=== PATIENT | male | born 1980 | race Caucasian/White ===

== ENCOUNTER 2016-06-14 01:27 | Emergency (ER) | payer MEDICAID ==
[2014-01-06 14:10] VITALS: BMI 27.4
[~2016-06-14 01:27] MED LIST: BACTRIM DS TABL1 TAB PO; HYDROCODONE-APA1 TAB PO; NAPROSYN500 MG PO; NUPRIN200 MG PO; ULTRAM50 MG PO
== END 2016-06-14 03:30 | disposition home or self-care (01) ==
LOC: D.ER 01:27
DX: L02.413 Cutaneous abscess of right upper limb (principal); M51.36 Other intervertebral disc degeneration, lumbar region

== ENCOUNTER 2016-06-22 23:14 | Inpatient (IN) | payer MEDICAID ==
[~2016-06-22] VITALS: Ht 190.5 cm; Wt 117.9 kg
[2016-06-23 02:18] LABS: BASOPHILS 0.2 % (0.0-2.0); EOSINOPHILS 2.5 % (0-7); HEMATOCRIT 43.1 % (42.0-54.0); HEMOGLOBIN 14.9 g/dL (13.5-17.5); IMMATURE GRANULOCYTES 0.2 % (0-5); LYMPHOCYTES 26.9 % (15-50); MCH 31.2 pg (26.0-34.0); MCHC 34.6 g/dL (31.0-37.0); MCV 90.4 fL (80.0-100.0); MEAN PLATELET VOLUME 10.6 fL (7.4-10.4); MONOCYTES 10.2 % (2-11); RBC 4.77 10x6/uL (4.20-6.10); RDW 14.8 % (11.5-14.5); WBC 8.4 10x3/uL (4.8-10.8)
[2016-06-23 02:19] LABS: PLATELET COUNT 159 10x3/uL (130-400)
[2016-06-23 02:34] LABS: ALBUMIN 3.8 g/dL (3.4-5.0); ALKALINE PHOSPHATASE 72 U/L (46-116); ALT (SGPT) 40 U/L (10-68); CALC OSMOLALITY 268 mosm/kg (275-300); CALCIUM 8.9 mg/dL (8.5-10.1); CARBON DIOXIDE 25.7 mmol/L (21.0-32.0); CHLORIDE - SERUM 99 mmol/L (98-107); CREATININE - SERUM 0.8 mg/dL (0.6-1.3); GLUCOSE 105 mg/dL (74-106); POTASSIUM - SERUM 3.8 mmol/L (3.5-5.1); PROTEIN - SERUM 7.5 g/dL (6.4-8.2); SODIUM 134 mmol/L (136-145); UREA NITROGEN 14 mg/dL (7-18); eGFR NON AFRICAN AMERICAN > 90 mL/min (90-120)
[2016-06-23 02:37] LABS: AMYLASE - SERUM 27 U/L (25-115); LIPASE 76 U/L (73-393); TROPONIN-I < 0.017 ng/mL (0.000-0.060)
--- NOTE | 2016-06-23 05:00 | NUR ---
PT. ARRIVED TO UNIT VIA W/C TO ROOM AND ADMISSION ASSESSMENT COMPLETED. PT. REQUESTED JELLO TO EAT SINCE HE HASN'T EATEN IN 2 DAYS HE SAID. INSTRUCTED PT. THAT LONG HE CAN SEE THRU IT HE CAN HAVE IT HIS DIET ORDER IS FOR CLEAR LIQUIDS FOR NOW. CALL LIGHT WITHIN REACH. IV TO PUMP AT 100CC/HR.
[2016-06-23 05:08] VITALS: BP 127/85; BMI 32.5
[2016-06-23] MEDS ORDERED: KLONOPIN1 MG PO (06:22)
[2016-06-23] MEDS ORDERED: TEMAZEPAM30 MG PO (06:24)
[2016-06-23] MEDS ORDERED: CELEXA20 MG PO (06:26)
[2016-06-23 08:00] VITALS: BP 115/65
--- NOTE | 2016-06-23 10:13 | NUR ---
AWAKERN FOR MEDS CO PAIN AT 6. WILL CALL FOR PAIN MED.
--- NOTE | 2016-06-23 10:13 | NUR ---
RATIONALE FOR SCD'S EXPLAINED. REFUSED SCD'S
[2016-06-23 12:08] VITALS: BP 107/61
[2016-06-23 12:09] VITALS: Ht 190.5 cm; Wt 117.9 kg
[2016-06-23 16:00] VITALS: BP 107/67
--- NOTE | 2016-06-23 18:15 | NUR ---
THROUGHOUT THE SHIFT, PATIENT HAS CO ABDOMEN PAIN. HAS BEEN MEDICATED ACCORDINGLY. KAMARI CLEAR LIQUIDS DIET.
--- NOTE | 2016-06-23 19:20 | NUR ---
Received patient sitting up in bed, female friend at bedside, PIV in right AC infusing NS @100ml/hr but is very positional. Patient is attempting to not bend arm so as not to set off alarm on IV pump. Is alert and oriented X 4, on room air, respirations easy and regular, no signs of respiratory distress.
--- NOTE | 2016-06-23 20:07 | NUR ---
Given Dilaudid 1mg per IV for complaints of abdominal pain, will monitor for effectiveness.
--- NOTE | 2016-06-23 20:39 | NUR ---
Started on Dilaudid PET SUPPLIES SALESPERSON pump (12mg/30ml syringe TBI/to be infused) by Aleksandra ECHEVARRIA and Viktor ECHEVARRIA. PET SUPPLIES SALESPERSON set at Dilaudid dose 0.5mg [id number].
--- NOTE | 2016-06-23 20:56 | NUR ---
Started on 4000ml Golytely solution for procedure tomorrow. Is aware he will be NPO after midnight. Is to have colonoscopy tomorrow. Consents signed for procedure, anesthesia and blood transfusions.
[2016-06-23 21:40] VITALS: BP 126/76
--- NOTE | 2016-06-23 22:15 | NUR ---
Continues to work on drinking his Golytely solution.
--- NOTE | 2016-06-23 22:50 | NUR ---
Has just now completed drinking the 4000ml Golytely solution. Resting quietly.
--- NOTE | 2016-06-23 23:53 | NUR ---
Given Restoril 30mg po PRN on patient's request for insomnia.
--- NOTE | 2016-06-24 | NUR ---
Patient reminded he is NPO now. Verbally replied he understood and will comply, using Dilaudid JOB SUPERINTENDENT pump frequently.
[2016-06-24 02:00] VITALS: BP 121/78
[2016-06-24 03:50] LABS: BASOPHILS 0.6 % (0.0-2.0); EOSINOPHILS 5.1 % (0-7); HEMATOCRIT 39.8 % (42.0-54.0); HEMOGLOBIN 13.4 g/dL (13.5-17.5); IMMATURE GRANULOCYTES 0.4 % (0-5); LYMPHOCYTES 44.1 % (15-50); MCH 30.7 pg (26.0-34.0); MCHC 33.7 g/dL (31.0-37.0); MCV 91.3 fL (80.0-100.0); MEAN PLATELET VOLUME 10.5 fL (7.4-10.4); MONOCYTES 12.3 % (2-11); NEUTROPHILS 37.5 % (40-80); PLATELET COUNT 160 10x3/uL (130-400); RBC 4.36 10x6/uL (4.20-6.10); RDW 14.4 % (11.5-14.5)
[2016-06-24 03:53] LABS: WBC 5.3 10x3/uL (4.8-10.8)
[2016-06-24 03:57] LABS: INR 1.08 (0.85-1.17); PROTIME 13.9 SECONDS (11.6-15.0)
[2016-06-24 03:58] LABS: APTT 33.6 SECONDS (22.8-39.4)
[2016-06-24 04:05] LABS: CALC OSMOLALITY 282 mosm/kg (275-300); CALCIUM 7.5 mg/dL (8.5-10.1); CARBON DIOXIDE 30.1 mmol/L (21.0-32.0); CHLORIDE - SERUM 107 mmol/L (98-107); CREATININE - SERUM 0.8 mg/dL (0.6-1.3); GLUCOSE 95 mg/dL (74-106); POTASSIUM - SERUM 3.9 mmol/L (3.5-5.1); SODIUM 143 mmol/L (136-145); eGFR NON AFRICAN AMERICAN > 90 mL/min (90-120)
[2016-06-24 04:07] LABS: UREA NITROGEN 7 mg/dL (7-18)
--- NOTE | 2016-06-24 04:47 | NUR ---
Has been sleeping on and off, call billingsley on, patient reports he has used all 30mls of his Dilaudid SP[employer] and same needs to be refilled.
[2016-06-24 04:53] LABS: ERYTHROCYTE SEDIMENTATION RATE 9 mm/hr (0-15)
[2016-06-24 05:09] LABS: UDS - AMPHET NEGATIVE QUAL (NEGATIVE); UDS - BARB NEGATIVE QUAL (NEGATIVE); UDS - BENZO POSITIVE QUAL (NEGATIVE); UDS - COCAINE NEGATIVE QUAL (NEGATIVE); UDS - METH NEGATIVE QUAL (NEGATIVE); UDS - OPIATE POSITIVE QUAL (NEGATIVE); UDS - PCP NEGATIVE QUAL (NEGATIVE); UDS - THC NEGATIVE QUAL (NEGATIVE)
--- NOTE | 2016-06-24 06:26 | NUR ---
New Dilaudid RECONDITIONING ASSOCIATE syringe hung. Patient remains NPO, current pain level 4/10.
--- NOTE | 2016-06-24 07:06 | HP ---
PATIENT: OVI NAVA MEDICAL RECORD: [id number] ACCOUNT: [id number] LOCATION:[address] : [birth year] ADMISSION DATE: 06/23/16 HISTORY AND PHYSICAL EXAMINATION DATE OF ADMISSION: 06/23/2016 CHIEF COMPLAINT: Rectal bleeding. HISTORY OF PRESENT ILLNESS: The patient is a 35-year-old male, who states that on Thursday morning early approximately 3:00 a.m., he had abdominal cramping and went to the restroom and had bright red blood. The bright red blood continued. The abdominal cramping continued. He presented to the Emergency Room. It was felt that the patient ____ admission. PAST MEDICAL HISTORY: Significant that he has had a history of having low back pain. He has had a history of anxiety as well as asthma and depression. FAMILY HISTORY: Apparently is unremarkable. MEDICATIONS: The patient states he takes amitriptyline 100 mg p.o. q.h.s., also he is on Wellbutrin 300 mg once a day, Celexa 20 mg once a day, clonazepam 1 mg p.o. q.h.s., hydrocodone 5/325 one every 4 hours p.r.n. severe pain. Also, was on Robaxin 750 q.6 hours p.r.n. muscle spasm, ProAir 2 puffs q.4 hours p.r.n. shortness of breath. ALLERGIES: No known drug allergies. HABITS: The patient is a 1 pack per day smoker, also occasional alcoholic ingestion on social basis. SOCIAL HISTORY: The patient was born in [place], but has lived in [place], recently moved to [facility], is currently seeking disability. REVIEW OF SYSTEMS: GENERAL: He denies any headaches, seizures, or syncope. Denies change in visual or auditory acuity. PULMONARY: He denies any shortness of breath, cough, congestion, history of TB, asthma or bronchitis. CARDIOVASCULAR: No chest pain, palpitations, PND or orthopnea. GASTROINTESTINAL: No chronic nausea or vomiting. He has had a hematochezia. GENITOURINARY: No urgency, frequency, or dysuria. PHYSICAL EXAMINATION: VITAL SIGNS: The patient's pulse 84, respirations 20, his blood pressure 127/85. HEENT: Unremarkable. NECK: Supple. There is no adenopathy. HEART: Has regular rhythm. No murmurs, gallops or rubs. LUNGS: Clear. ABDOMEN: Soft, bowel sounds positive. No organomegaly. GENITAL: Unremarkable. The patient has left lower quadrant tenderness. No rebound, no guarding. He did have bright red blood per rectum. LABORATORY DATA: He had a white count of 8.4, hemoglobin 14.9, hematocrit is HISTORY AND PHYSICAL [id number] BRANDY,OVI C 43, and platelets were 159. Sodium 134, potassium 3.8, chloride is 99, CO2 is 25, BUN is 14, creatinine is 0.8. DIAGNOSTIC DATA: The patient had a CT scan of the abdomen, which was not present at the present time, but apparently according to Dr. Wheeler, the patient does have inflammatory changes in the lower sigmoid colon, rectal area. ASSESSMENT: Lower gastrointestinal bleed, possible colitis. PLAN: The patient is admitted, placed on Levaquin as well as Flagyl. GI consultation will be obtained. TRANSINT:[id number] Voice Confirmation ID: [id number] DOCUMENT ID: [id number] WASHINGTON CARPENTER MD at 0706 CC: [id number] DICTATION DATE: 06/23/16 07 PRINT LINE TAILER: 06/23/16 1045 [place] [address]
--- NOTE | 2016-06-24 07:15 | NUR ---
RESTING QUIETLY NAD NOTED
--- NOTE | 2016-06-24 07:49 | NUR ---
Patient has used 10mls of Dilaudid COMMISSARY PRODUCTION SUPERVISOR since 625 when new syringe was hung. TBI (to be infused) is 20.7mls.
[2016-06-24 07:52] VITALS: BP 133/69
[2016-06-24 11:42] VITALS: BP 121/90
[2016-06-24 15:51] VITALS: BP 108/71
--- NOTE | 2016-06-24 20:09 | NUR ---
PT DILAUDID SYRINGE CHANGED. PT DENIES FURTHER NEEDS.
--- NOTE | 2016-06-24 21:45 | NUR ---
CORTENEMA ORDERED NOT AVAILABLE IN HOSPITAL. NOTIFIED BY PHARMACY THAT THEY SHOULD BE GETTING SOME TOMORROW. DR MONROE NOTIFIED. ANUCORT REGLA ORDERED FOR TONIGHT.
--- NOTE | 2016-06-24 23:15 | NUR ---
PT REQ AND REC'D PRN RESTORIL AT THIS TIME. PT ALSO ADMINISTERED HIS OWN SUPPOSITORY AT THIS TIME. BED LOW. CL IN REACH.
[2016-06-25] VITALS: BP 116/70
--- NOTE | 2016-06-25 02:15 | NUR ---
PT RESTING, EYES CLOSED. BED LOW. CL IN REACH.
[2016-06-25 04:00] VITALS: BP 120/81
--- NOTE | 2016-06-25 04:32 | NUR ---
PT DILAUDID SYRINGE CHANGED. PT DENIES FURTHER NEEDS.
[2016-06-25] MEDS ORDERED: FLAGYL500 MG PO (07:20)
[2016-06-25] MEDS ORDERED: AZULFIDINE500 MG PO (07:20)
[2016-06-25] MEDS ORDERED: CORTENEMA100 MG/60 RC (07:22)
--- NOTE | 2016-06-25 08:00 | NUR ---
PATIENT IS ASLEEP, BUT HE AWAKENS EASILY.
[2016-06-25 08:21] VITALS: BP 110/66
--- NOTE | 2016-06-25 10:00 | NUR ---
GEETA HAS BEEN D/C'D AND HE HAS NO MEDS FOR PAIN ORDERED. DID SPEAK TO PERSONNEL SECURITY ASSISTANT AND BAND SALVAGER. THEY STATE ONE WILL NOT PRESCRIBE PAIN MEDS IF HE IS GETTING MEDS FROM ANOTHER
--- NOTE | 2016-06-25 10:50 | NUR ---
PHARMACY NOT ABLE TO GET HYDROCORT ENEMA, CALLED DR. CHAUDHARY AND HE SAID TO GIVE ANUSOL HC. SUPPOSITORY INSERTED BY PATIENT NOW. D/C'D IV SITE, CATH INTACT.
--- NOTE | 2016-06-25 11:04 | NUR ---
PATIENT SIGNED D/C PAPERWORK.
--- NOTE | 2016-06-25 11:49 | NUR ---
Patient Name: OVI NAVA Admission Status: ER Accout number: [id number] Admission Date: 06-23-2016 : 1980 Admission Diagnosis: Attending: GUSTAVO Current LOS: 2 Anticipated DC Date: 06-25-2016 Planned Disposition: Home Primary Insurance: [employer] [place] PRIVATE OPTIONS DI[employer]OND Discharge Planning Comments: * Is the patient Alert and Oriented? Yes 0 * How many steps to enter\exit or inside your home? 3 0 * PCP DR. NICHOLS 0 * Pharmacy [facility] 0 * Preadmission Environment Home with Family 0 * ADLs Independent 0 * Equipment None 0 * Other Equipment NO MEDICAL EQUIPMENT PROVIDER PREFERENCE 0 * List name and contact numbers for known caregivers / representatives who currently or will assist patient after discharge: TONY NAVA, SPOUSE, 0 * Community resources currently utilized None 0 * Please name any agencies selected above. NONE 0 * Additional services required to return to the preadmission environment? No 0 * Can the patient safely return to the preadmission environment? Yes 0 * Has this patient been hospitalized within the prior 30 days at any hospital? Yes 0 CM MET WITH PT IN ROOM TO DISCUSS DISCHARGE PLANNING AND NEEDS. PT REPORTS LIVING AT HOME INDEPENDENTLY WITH HIS SPOUSE. PT HAS NO MEDICAL EQUIPMENT AND NO OUTSIDE SERVICES ASSISTING IN THE HOME. CM DISCUSSED AVAILABILITY OF HOME HEALTH, REHAB SERVICES AND MEDICAL EQUIPMENT. PT DENIES DISCHARGE NEEDS, REPORTS HIS SPOUSE WILL PICK HIM UP FOR DISCHARGE HOME. CM DISCUSSED AVAILABILITY OF INSURANCE KIL[employer]REMAN TO PT IF NEEDED AND HOW TO CONTACT THE CLOTHESPIN MACHINE OPERATOR. PT TO DISCHARGE HOME WITH SPOUSE, DENIES NEEDS. Substation Inspector: Vinicius Wood
[2016-06-25 12:36] VITALS: BP 108/61
--- NOTE | 2016-06-26 07:11 | DS ---
PATIENT:OVI NAVA :[birth year] MEDICAL RECORD: [id number] DISCHARGE SUMMARY ADMISSION DATE: 06/23/16 DISCHARGE DATE: 06/25/16 DATE OF ADMISSION: 06/23/2016 DATE OF DISCHARGE: 06/25/2016 CONDITION ON DISCHARGE: Improved. ADMITTING DIAGNOSIS: Abdominal pain with rectal bleeding. DISCHARGE DIAGNOSIS: Ulcerative proctosigmoiditis. HOSPITAL COURSE: This patient is a 35-year-old male patient of Dr. Valerio, presented to the Emergency Room complaining of abdominal cramping. He had developed bright red blood per rectum. He was admitted, placed on Flagyl as well as Cipro. He was seen in consultation by Dr. Jones. He had had a CT scan of the abdomen. CT revealed mucosal thickening in the rectosigmoid colon suggestive of inflammatory/infectious process. He was seen in consultation with Dr. Jones, who did a colonoscopy on the patient on the , which in her findings, she did reveal [id number] ulcerative proctosigmoiditis. Biopsies were taken. The colonoscopy was completed to the cecum. No other region of the colon had inflammatory changes, but very poor prep with solid and semi-solid stool throughout the colon. He was diagnosed with ulcerative proctosigmoiditis. He was placed on Flagyl 500 mg t.i.d. for 10 days, Cortenema b.i.d. per rectum for 7 days and then at bedtime for 7 days, sulfasalazine 500 mg 2 tablets q.i.d. for 3 months, then decreased it to 2 p.o. t.i.d. He would be on a full liquid diet. Avoid aspirin products. On the , the patient was afebrile, his vital signs were stable. He had had no further abdominal cramping or bleeding. He was therefore discharged. He was to follow up with Dr. Nichols in approximately 1 week as well as with Dr. Jones. He was discharged on sulfasalazine 1000 mg b.i.d., Flagyl 500 mg t.i.d. and Cortenema b.i.d. He would continue on his [place] 10/325 one every 4 hours p.r.n. severe pain, Klonopin 1 mg p.o. at bedtime, temazepam 30 mg p.o. at bedtime and Celexa 20 mg once a day. DIET: Soft diet. ACTIVITIES: Ad isma. TRANSINT:[id number] Voice Confirmation ID: [id number] DOCUMENT ID: [id number] WASHINGTON CARPENTER MD at 0711 CC: CHEIKH NICHOLS DO [id number] DICTATION DATE: 06/25/16727 CHUCKING MACHINE OPERATOR: 06/26/162 DIS IN 06/25/16 [place] [id number] [place] [id number]
--- NOTE | 2016-07-04 14:40 | OP ---
PATIENT NAME: OVI NAVA MEDICAL RECORD: [id number] :[birth year] LOCATION:D.M2 D.2111 ADMISSION DATE:06/23/16 SURGEON: ANAHI LUEVANO MD DATE OF OPERATION: 06/24/2016 PROCEDURE: Colonoscopy with biopsy. ATTENDING PHYSICIAN: Washington Carpenter MD INDICATIONS: Mr. Nava is a 35-year-old gentleman, who presented secondary to acute onset of rectal bleeding, left lower quadrant abdominal pain. CT scan of the abdomen and pelvis showed inflammatory changes in the rectosigmoid colon. He was empirically started on IV Flagyl and Levaquin. He presents for inpatient colonoscopy. PREMEDICATIONS: Total IV anesthesia (propofol 510 mg). INSTRUMENT: Olympus video colonoscope. PROCEDURE AND FINDINGS: After receiving informed consent, Mr. Nava was placed in left lateral decubitus position and sedated as per anesthesia. After achieving an adequate level of sedation, digital rectal exam was performed that showed no external hemorrhoidal tags, fissures or fistulas, normal sphincter tone. No palpable rectal masses. The colonoscope was introduced per rectally and advanced to the cecum without difficulty. The cecum, IC valve, and appendiceal orifice were identified. As the colonoscope was withdrawn, careful inspection was made of the barragan of the colon. There was a copious amount of thick liquid semi-formed stool and solid stool scattered throughout the colon (very poor prep). There were inflammatory changes of the colonic mucosa with a small shallow ulcers noted in the mid sigmoid colon down through to the rectum. Multiple biopsies were taken from the sigmoid colon and rectum. No other inflammatory changes were seen in the colon. Because of the quality of the prep, small polyps and even small masses may have been missed. Withdrawal time was 6 minutes. ASSESSMENT: Ulcerative proctosigmoiditis. RECOMMENDATIONS: 1. Sulfasalazine 500 mg 2 p.o. q.i.d. 2. Cortenemas 1 per rectum b.i.d. for 7 days and then 1 per rectum q.h.s. for 7 days. 3. Avoid nonsteroidal anti-inflammatory drugs. 4. Flagyl 500 mg 1 p.o. t.i.d. for 10 days. TRANSINT:[id number] Voice Confirmation ID: [id number] DOCUMENT ID: [id number] OPERATIVE REPORT [id number] OVI NAVA ANAHI LUEVANO MD at 1440 CC: WASHINGTON CARPENTER MD [id number] DICTATION DATE: 06/24/16 1640 PHARMACY INFORMATICS MANAGER: 06/25/16 0005 DIS IN 06/25/16 [facility] [address] [place] [address]
== END 2016-06-25 13:00 | disposition home or self-care (01) | DRG 387 ==
LOC: D.ER 23:14 → D.M2 06-23 03:52
PROVIDERS: Internal Medicine Gastroenterology; Surgery; ADMIT Family Medicine
PROC: 0DBN8ZX Excision of Sigmoid Colon, Via Natural or Artificial Opening Endoscopic, Diagnostic (ICD-10-PCS; principal; 2016-06-24 16:00)
DX: K51.30 Ulcerative (chronic) rectosigmoiditis without complications (principal); F41.9 Anxiety disorder, unspecified; F32.9 Major depressive disorder, single episode, unspecified; J45.909 Unspecified asthma, uncomplicated; Z72.0 Tobacco use

== ENCOUNTER → 2016-07-04 12:07 | Emergency (ER) | payer MEDICAID ==
[~2016-07-04 12:07] MED LIST changes: +AZULFIDINE500 MG PO; +CELEXA20 MG PO; +CORTENEMA100 MG/60 RC; +FLAGYL500 MG PO; +KLONOPIN1 MG PO; +TEMAZEPAM30 MG PO
== END | disposition left against medical advice (07) ==
LOC: D.ER 12:07
DX: Z02.9 Encounter for administrative examinations, unspecified (principal)

== ENCOUNTER 2016-07-04 19:42 | Emergency (ER) | payer MEDICAID ==
[2016-06-23 12:09] VITALS: BMI 32.4
[2016-07-04 20:35] LABS: BASOPHILS 0.9 % (0.0-2.0); EOSINOPHILS 4.1 % (0-7); HEMATOCRIT 46.3 % (42.0-54.0); HEMOGLOBIN 15.6 g/dL (13.5-17.5); IMMATURE GRANULOCYTES 1.3 % (0-5); LYMPHOCYTES 30.3 % (15-50); MCH 31.1 pg (26.0-34.0); MCHC 33.7 g/dL (31.0-37.0); MCV 92.4 fL (80.0-100.0); MEAN PLATELET VOLUME 9.8 fL (7.4-10.4); MONOCYTES 10.8 % (2-11); NEUTROPHILS 52.6 % (40-80); RBC 5.01 10x6/uL (4.20-6.10)
[2016-07-04 20:36] LABS: PLATELET COUNT 213 10x3/uL (130-400)
[2016-07-04 20:48] LABS: ALBUMIN 3.7 g/dL (3.4-5.0); ALKALINE PHOSPHATASE 65 U/L (46-116); ALT (SGPT) 41 U/L (10-68); BILIRUBIN - TOTAL 0.22 mg/dL (0.2-1.3); CALC OSMOLALITY 277 mosm/kg (275-300); CALCIUM 10.3 mg/dL (8.5-10.1); CARBON DIOXIDE 29.1 mmol/L (21.0-32.0); CHLORIDE - SERUM 103 mmol/L (98-107); GLUCOSE 76 mg/dL (74-106); POTASSIUM - SERUM 4.1 mmol/L (3.5-5.1); PROTEIN - SERUM 7.7 g/dL (6.4-8.2); SODIUM 140 mmol/L (136-145); UREA NITROGEN 12 mg/dL (7-18); eGFR NON AFRICAN AMERICAN 90 mL/min (90-120)
[2016-07-04 23:25] LABS: APPEARANCE CLEAR (CLEAR); BILIRUBIN NEGATIVE (NEGATIVE); COLOR YELLOW (YELLOW); GLUCOSE NEGATIVE (NEGATIVE); KETONE NEGATIVE (NEGATIVE); LEUKOCYTE ESTERASE NEGATIVE (NEGATIVE); NITRITE NEGATIVE (NEGATIVE); PROTEIN NEGATIVE (NEGATIVE); SPECIFIC GRAVITY 1.015 (1.005-1.020); UROBILINOGEN NORMAL (NORMAL)
== END 2016-07-05 01:37 | disposition home or self-care (01) ==
LOC: D.ER 19:42
PROVIDERS: Family Medicine
DX: R10.32 Left lower quadrant pain (principal); M51.36 Other intervertebral disc degeneration, lumbar region; F32.9 Major depressive disorder, single episode, unspecified

== ENCOUNTER 2016-07-18 18:23 | Emergency (ER) | payer MEDICAID ==
[2016-06-23 12:09] VITALS: BMI 32.4
[2016-07-18 20:07] LABS: BASOPHILS 0.5 % (0.0-2.0); EOSINOPHILS 0.7 % (0-7); HEMATOCRIT 44.2 % (42.0-54.0); HEMOGLOBIN 15.3 g/dL (13.5-17.5); IMMATURE GRANULOCYTES 1.7 % (0-5); LYMPHOCYTES 5.6 % (15-50); MCHC 34.6 g/dL (31.0-37.0); MCV 89.5 fL (80.0-100.0); MEAN PLATELET VOLUME 9.3 fL (7.4-10.4); MONOCYTES 4.2 % (2-11); NEUTROPHILS 87.3 % (40-80); RBC 4.94 10x6/uL (4.20-6.10); RDW 14.6 % (11.5-14.5); WBC 10.6 10x3/uL (4.8-10.8)
[2016-07-18 20:08] LABS: APPEARANCE CLEAR (CLEAR); BILIRUBIN NEGATIVE (NEGATIVE); COLOR YELLOW (YELLOW); GLUCOSE NEGATIVE (NEGATIVE); KETONE NEGATIVE (NEGATIVE); LEUKOCYTE ESTERASE NEGATIVE (NEGATIVE); NITRITE NEGATIVE (NEGATIVE); PROTEIN NEGATIVE (NEGATIVE); SPECIFIC GRAVITY 1.015 (1.005-1.020); UROBILINOGEN NORMAL (NORMAL)
[2016-07-18 20:08] LABS: PLATELET COUNT 165 10x3/uL (130-400)
[2016-07-18 20:13] LABS: UDS - AMPHET NEGATIVE QUAL (NEGATIVE); UDS - BARB NEGATIVE QUAL (NEGATIVE); UDS - BENZO POSITIVE QUAL (NEGATIVE); UDS - COCAINE NEGATIVE QUAL (NEGATIVE); UDS - METH NEGATIVE QUAL (NEGATIVE); UDS - OPIATE NEGATIVE QUAL (NEGATIVE); UDS - PCP NEGATIVE QUAL (NEGATIVE); UDS - THC NEGATIVE QUAL (NEGATIVE)
[2016-07-18 20:19] LABS: ALBUMIN 3.5 g/dL (3.4-5.0); ALKALINE PHOSPHATASE 93 U/L (46-116); ALT (SGPT) 53 U/L (10-68); BILIRUBIN - TOTAL 0.27 mg/dL (0.2-1.3); CALC OSMOLALITY 277 mosm/kg (275-300); CALCIUM 8.7 mg/dL (8.5-10.1); CARBON DIOXIDE 29.3 mmol/L (21.0-32.0); CHLORIDE - SERUM 100 mmol/L (98-107); GLUCOSE 111 mg/dL (74-106); POTASSIUM - SERUM 4.1 mmol/L (3.5-5.1); PROTEIN - SERUM 7.8 g/dL (6.4-8.2); SODIUM 138 mmol/L (136-145); UREA NITROGEN 16 mg/dL (7-18); eGFR NON AFRICAN AMERICAN 90 mL/min (90-120)
[2016-07-18 20:31] LABS: C-REACTIVE PROTEIN 2.2 mg/dL (0.0-0.9); CKMB 1.5 U/L (0.0-3.6)
== END 2016-07-18 21:20 | disposition home or self-care (01) ==
LOC: D.ER 18:23
PROVIDERS: Nurse Practitioner Family
DX: M25.552 Pain in left hip (principal); M25.551 Pain in right hip; K50.90 Crohn's disease, unspecified, without complications; M51.36 Other intervertebral disc degeneration, lumbar region; F32.9 Major depressive disorder, single episode, unspecified

== ENCOUNTER 2016-08-04 16:59 | Emergency (ER) | payer MEDICAID ==
[2016-06-23 12:09] VITALS: BMI 32.4
[2016-08-04 18:23] LABS: BASOPHILS 0.4 % (0-2); EOSINOPHILS 3.5 % (0-7); HEMATOCRIT 42.9 % (42.0-54.0); HEMOGLOBIN 14.9 g/dL (13.5-17.5); IMMATURE GRANULOCYTES 0.7 % (0-5); LYMPHOCYTES 41.5 % (15-50); MCH 31.9 pg (26.0-34.0); MCHC 34.7 g/dL (31.0-37.0); MCV 91.9 fL (80.0-100.0); MEAN PLATELET VOLUME 9.7 fL (7.4-10.4); MONOCYTES 13.7 % (2-11); NEUTROPHILS 40.2 % (40-80); RBC 4.67 10x6/uL (4.20-6.10); RDW 15.6 % (11.5-14.5); WBC 6.8 10x3/uL (4.8-10.8)
[2016-08-04 18:31] LABS: PLATELET COUNT 210 10x3/uL (130-400)
[2016-08-04 18:47] LABS: ALBUMIN 3.5 g/dL (3.4-5.0); ALKALINE PHOSPHATASE 60 U/L (46-116); ALT (SGPT) 36 U/L (10-68); BILIRUBIN - TOTAL 0.46 mg/dL (0.2-1.3); CALC OSMOLALITY 276 mosm/kg (275-300); CALCIUM 8.8 mg/dL (8.5-10.1); CARBON DIOXIDE 30.6 mmol/L (21.0-32.0); CHLORIDE - SERUM 103 mmol/L (98-107); CREATININE - SERUM 0.8 mg/dL (0.6-1.3); GLUCOSE 90 mg/dL (74-106); POTASSIUM - SERUM 3.7 mmol/L (3.5-5.1); PROTEIN - SERUM 7.1 g/dL (6.4-8.2); SODIUM 139 mmol/L (136-145); UREA NITROGEN 11 mg/dL (7-18); eGFR NON AFRICAN AMERICAN > 90 mL/min (90-120)
[2016-08-04 20:22] LABS: APPEARANCE CLEAR (CLEAR); BILIRUBIN NEGATIVE (NEGATIVE); COLOR YELLOW (YELLOW); GLUCOSE NEGATIVE (NEGATIVE); KETONE NEGATIVE (NEGATIVE); LEUKOCYTE ESTERASE NEGATIVE (NEGATIVE); NITRITE NEGATIVE (NEGATIVE); PROTEIN NEGATIVE (NEGATIVE); SPECIFIC GRAVITY 1.015 (1.005-1.020); UROBILINOGEN NORMAL (NORMAL)
== END 2016-08-04 22:10 | disposition home or self-care (01) ==
LOC: D.ER 16:59
PROVIDERS: Emergency Medicine
DX: K58.9 Irritable bowel syndrome, unspecified (principal); M51.36 Other intervertebral disc degeneration, lumbar region

== ENCOUNTER 2016-08-05 17:06 | Emergency (ER) | payer MEDICAID ==
[2016-06-23 12:09] VITALS: BMI 32.4
[2016-08-05 21:05] LABS: BASOPHILS 0.5 % (0-2); EOSINOPHILS 0.2 % (0-7); HEMATOCRIT 48.8 % (42.0-54.0); HEMOGLOBIN 16.4 g/dL (13.5-17.5); LYMPHOCYTES 23.3 % (15-50); MCH 31.4 pg (26.0-34.0); MCHC 33.6 g/dL (31.0-37.0); MCV 93.3 fL (80.0-100.0); MEAN PLATELET VOLUME 10.1 fL (7.4-10.4); MONOCYTES 1.5 % (2-11); NEUTROPHILS 73.5 % (40-80); RBC 5.23 10x6/uL (4.20-6.10); RDW 15.4 % (11.5-14.5); WBC 6.1 10x3/uL (4.8-10.8)
[2016-08-05 21:13] LABS: PLATELET COUNT 264 10x3/uL (130-400)
[2016-08-05 21:28] LABS: ALKALINE PHOSPHATASE 68 U/L (46-116); ALT (SGPT) 40 U/L (10-68); BILIRUBIN - TOTAL 0.21 mg/dL (0.2-1.3); CALCIUM 9.2 mg/dL (8.5-10.1); CHLORIDE - SERUM 107 mmol/L (98-107); CREATININE - SERUM 0.9 mg/dL (0.6-1.3); PROTEIN - SERUM 7.9 g/dL (6.4-8.2); SODIUM 144 mmol/L (136-145); UREA NITROGEN 10 mg/dL (7-18); eGFR NON AFRICAN AMERICAN > 90 mL/min (90-120)
[2016-08-05 21:35] LABS: CALC OSMOLALITY 288 mosm/kg (275-300); GLUCOSE 155 mg/dL (74-106); POTASSIUM - SERUM 4.8 mmol/L (3.5-5.1)
== END 2016-08-05 21:39 | disposition home or self-care (01) ==
LOC: D.ER 17:06
PROVIDERS: Emergency Medicine
DX: F41.9 Anxiety disorder, unspecified (principal); R45.5 Hostility; K50.90 Crohn's disease, unspecified, without complications

== ENCOUNTER 2017-06-02 15:04 | Emergency (ER) | payer MEDICAID ==
[2016-06-23 12:09] VITALS: BMI 32.4
== END 2017-06-02 16:37 | disposition home or self-care (01) ==
LOC: D.ER 15:04
DX: M79.672 Pain in left foot (principal)

== ENCOUNTER 2017-06-04 12:52 | Emergency (ER) | payer MEDICAID ==
[2016-06-23 12:09] VITALS: BMI 32.4
[2017-06-04 13:28] LABS: APPEARANCE CLEAR (CLEAR); BILIRUBIN NEGATIVE (NEGATIVE); COLOR YELLOW (YELLOW); GLUCOSE NEGATIVE (NEGATIVE); KETONE NEGATIVE (NEGATIVE); NITRITE NEGATIVE (NEGATIVE); PROTEIN NEGATIVE (NEGATIVE); UROBILINOGEN NORMAL (NORMAL)
[2017-06-04 13:32] LABS: BASOPHILS 0.2 % (0-2); EOSINOPHILS 3.3 % (0-7); HEMATOCRIT 40.7 % (42.0-54.0); HEMOGLOBIN 13.7 g/dL (13.5-17.5); IMMATURE GRANULOCYTES 0.2 % (0-5); MCH 30.9 pg (26.0-34.0); MCHC 33.7 g/dL (31.0-37.0); MCV 91.9 fL (80.0-100.0); MEAN PLATELET VOLUME 10.7 fL (7.4-10.4); MONOCYTES 19.3 % (2-11); PLATELET COUNT 143 10x3/uL (130-400); RBC 4.43 10x6/uL (4.20-6.10); WBC 5.2 10x3/uL (4.8-10.8)
[2017-06-04 13:51] LABS: ALBUMIN 3.7 g/dL (3.4-5.0); ALKALINE PHOSPHATASE 62 U/L (46-116); ALT (SGPT) 26 U/L (10-68); CALC OSMOLALITY 273 mosm/kg (275-300); CALCIUM 9.1 mg/dL (8.5-10.1); CARBON DIOXIDE 31.6 mmol/L (21.0-32.0); CHLORIDE - SERUM 99 mmol/L (98-107); CREATININE - SERUM 0.9 mg/dL (0.6-1.3); GLUCOSE 95 mg/dL (74-106); POTASSIUM - SERUM 4.7 mmol/L (3.5-5.1); PROTEIN - SERUM 7.2 g/dL (6.4-8.2); SODIUM 136 mmol/L (136-145); UREA NITROGEN 18 mg/dL (7-18); eGFR NON AFRICAN AMERICAN > 90 mL/min (90-120)
[2017-06-04 14:01] LABS: AMYLASE - SERUM 41 U/L (25-115); LIPASE 71 U/L (73-393)
== END 2017-06-04 15:15 | disposition home or self-care (01) ==
LOC: D.ER 12:52
PROVIDERS: Emergency Medicine
DX: K50.90 Crohn's disease, unspecified, without complications (principal)

== ENCOUNTER 2017-06-05 17:04 | Emergency (ER) | payer MEDICAID ==
[2016-06-23 12:09] VITALS: BMI 32.4
[2017-06-05 18:37] LABS: BASOPHILS 0.2 % (0-2); EOSINOPHILS 3.6 % (0-7); HEMATOCRIT 40.2 % (42.0-54.0); HEMOGLOBIN 13.6 g/dL (13.5-17.5); IMMATURE GRANULOCYTES 0.2 % (0-5); LYMPHOCYTES 31.9 % (15-50); MCH 31.1 pg (26.0-34.0); MCHC 33.8 g/dL (31.0-37.0); MEAN PLATELET VOLUME 10.1 fL (7.4-10.4); MONOCYTES 10.8 % (2-11); NEUTROPHILS 53.3 % (40-80); PLATELET COUNT 161 10x3/uL (130-400); RBC 4.37 10x6/uL (4.20-6.10); RDW 13.9 % (11.5-14.5); WBC 6.2 10x3/uL (4.8-10.8)
[2017-06-05 18:59] LABS: ALBUMIN 3.7 g/dL (3.4-5.0); ALKALINE PHOSPHATASE 100 U/L (46-116); BILIRUBIN - TOTAL 0.18 mg/dL (0.2-1.3); CALC OSMOLALITY 282 mosm/kg (275-300); CALCIUM 9.1 mg/dL (8.5-10.1); CARBON DIOXIDE 30.4 mmol/L (21.0-32.0); CHLORIDE - SERUM 103 mmol/L (98-107); CREATININE - SERUM 0.9 mg/dL (0.6-1.3); GLUCOSE 90 mg/dL (74-106); LIPASE 111 U/L (73-393); POTASSIUM - SERUM 4.1 mmol/L (3.5-5.1); PROTEIN - SERUM 7.5 g/dL (6.4-8.2); SODIUM 141 mmol/L (136-145); UREA NITROGEN 19 mg/dL (7-18); eGFR NON AFRICAN AMERICAN > 90 mL/min (90-120)
[2017-06-05 19:06] LABS: ALT (SGPT) 64 U/L (10-68); AMYLASE - SERUM 52 U/L (25-115)
[2017-06-05 19:50] LABS: INR 0.97 (0.85-1.17); PROTIME 12.4 SECONDS (11.6-15.0)
[2017-06-05 21:31] LABS: APPEARANCE CLEAR (CLEAR); BILIRUBIN NEGATIVE (NEGATIVE); COLOR DK YELLOW (YELLOW); GLUCOSE NEGATIVE (NEGATIVE); KETONE NEGATIVE (NEGATIVE); NITRITE NEGATIVE (NEGATIVE); PROTEIN TRACE mg/dL (NEGATIVE); UROBILINOGEN NORMAL (NORMAL)
== END 2017-06-06 00:16 | disposition home or self-care (01) ==
LOC: D.ER 17:04
PROVIDERS: Emergency Medicine; Nurse Practitioner Family
DX: K59.00 Constipation, unspecified (principal); K50.90 Crohn's disease, unspecified, without complications; F17.200 Nicotine dependence, unspecified, uncomplicated

== ENCOUNTER 2017-07-28 18:57 | Inpatient (IN) | payer MEDICAID ==
[~2017-07-28] VITALS: Ht 195.6 cm; Wt 120.2 kg
[2017-07-28 21:16] LABS: BASOPHILS 0.1 % (0-2); EOSINOPHILS 0.9 % (0-7); HEMATOCRIT 46.8 % (42.0-54.0); HEMOGLOBIN 16.6 g/dL (13.5-17.5); IMMATURE GRANULOCYTES 0.3 % (0-5); LYMPHOCYTES 24.8 % (15-50); MCH 31.8 pg (26.0-34.0); MCHC 35.5 g/dL (31.0-37.0); MCV 89.7 fL (80.0-100.0); MEAN PLATELET VOLUME 9.7 fL (7.4-10.4); MONOCYTES 11.3 % (2-11); NEUTROPHILS 62.6 % (40-80); RBC 5.22 10x6/uL (4.20-6.10); RDW 13.3 % (11.5-14.5); WBC 12.1 10x3/uL (4.8-10.8)
[2017-07-28 21:28] LABS: PLATELET COUNT 231 10x3/uL (130-400)
[2017-07-28 21:58] LABS: ALBUMIN 4.1 g/dL (3.4-5.0); ALKALINE PHOSPHATASE 66 U/L (46-116); ALT (SGPT) 82 U/L (10-68); BILIRUBIN - TOTAL 0.56 mg/dL (0.2-1.3); CALC OSMOLALITY 264 mosm/kg (275-300); CALCIUM 9.3 mg/dL (8.5-10.1); CARBON DIOXIDE 26.2 mmol/L (21.0-32.0); CHLORIDE - SERUM 96 mmol/L (98-107); CREATININE - SERUM 0.8 mg/dL (0.6-1.3); GLUCOSE 91 mg/dL (74-106); POTASSIUM - SERUM 3.7 mmol/L (3.5-5.1); SODIUM 133 mmol/L (136-145); UREA NITROGEN 11 mg/dL (7-18); eGFR NON AFRICAN AMERICAN > 90 mL/min (90-120)
[2017-07-28 23:53] LABS: APPEARANCE CLEAR (CLEAR); BILIRUBIN NEGATIVE (NEGATIVE); COLOR YELLOW (YELLOW); GLUCOSE NEGATIVE (NEGATIVE); KETONE NEGATIVE (NEGATIVE); NITRITE NEGATIVE (NEGATIVE); PROTEIN NEGATIVE (NEGATIVE); UROBILINOGEN NORMAL (NORMAL)
[2017-07-29 01:10] LABS: INR 1.01 (0.85-1.17); PROTIME 12.9 SECONDS (11.6-15.0)
[2017-07-29 02:09] LABS: ERYTHROCYTE SEDIMENTATION RATE 2 mm/hr (0-15)
[2017-07-29 05:02] LABS: BASOPHILS 0.1 % (0-2); EOSINOPHILS 0.5 % (0-7); HEMATOCRIT 45.4 % (42.0-54.0); HEMOGLOBIN 15.9 g/dL (13.5-17.5); IMMATURE GRANULOCYTES 0.3 % (0-5); LYMPHOCYTES 12.3 % (15-50); MCH 31.6 pg (26.0-34.0); MCV 90.3 fL (80.0-100.0); MEAN PLATELET VOLUME 10.3 fL (7.4-10.4); MONOCYTES 3.3 % (2-11); NEUTROPHILS 83.5 % (40-80); PLATELET COUNT 218 10x3/uL (130-400); RBC 5.03 10x6/uL (4.20-6.10); RDW 13.5 % (11.5-14.5)
[2017-07-29 05:05] LABS: WBC 8.7 10x3/uL (4.8-10.8)
[2017-07-29 05:17] LABS: ALBUMIN 3.8 g/dL (3.4-5.0); ALKALINE PHOSPHATASE 69 U/L (46-116); ALT (SGPT) 71 U/L (10-68); CALC OSMOLALITY 271 mosm/kg (275-300); CALCIUM 9.2 mg/dL (8.5-10.1); CARBON DIOXIDE 25.8 mmol/L (21.0-32.0); CHLORIDE - SERUM 102 mmol/L (98-107); GLUCOSE 109 mg/dL (74-106); POTASSIUM - SERUM 5.1 mmol/L (3.5-5.1); PROTEIN - SERUM 7.2 g/dL (6.4-8.2); SODIUM 136 mmol/L (136-145); UREA NITROGEN 10 mg/dL (7-18); eGFR NON AFRICAN AMERICAN 89 mL/min (90-120)
[2017-07-29 10:24] LABS: UDS - AMPHET POSITIVE QUAL (NEGATIVE); UDS - BARB NEGATIVE QUAL (NEGATIVE); UDS - BENZO POSITIVE QUAL (NEGATIVE); UDS - COCAINE NEGATIVE QUAL (NEGATIVE); UDS - OPIATE POSITIVE QUAL (NEGATIVE); UDS - PCP NEGATIVE QUAL (NEGATIVE); UDS - THC NEGATIVE QUAL (NEGATIVE)
[2017-07-29 14:38] LABS: BASOPHILS 0 % (0-2); EOSINOPHILS 0.2 % (0-7); HEMATOCRIT 45.8 % (42.0-54.0); HEMOGLOBIN 16.1 g/dL (13.5-17.5); IMMATURE GRANULOCYTES 0.3 % (0-5); LYMPHOCYTES 17.1 % (15-50); MCH 31.8 pg (26.0-34.0); MCHC 35.2 g/dL (31.0-37.0); MCV 90.5 fL (80.0-100.0); MONOCYTES 5.1 % (2-11); NEUTROPHILS 77.3 % (40-80); PLATELET COUNT 235 10x3/uL (130-400); RBC 5.06 10x6/uL (4.20-6.10); RDW 13.3 % (11.5-14.5); WBC 8.7 10x3/uL (4.8-10.8)
[2017-07-30] VITALS (7 sets, daily range): BP systolic 94–137; BP diastolic 42–74; Ht 195.6 cm; Wt 120.2 kg
[2017-07-30] MEDS ORDERED: CYMBALTA20 MG (04:54)
[2017-07-30] MEDS ORDERED: APRISO0.375 GM (04:55)
[2017-07-30 06:52] LABS: BASOPHILS 0 % (0-2); EOSINOPHILS 0.2 % (0-7); HEMATOCRIT 40.1 % (42.0-54.0); HEMOGLOBIN 13.9 g/dL (13.5-17.5); IMMATURE GRANULOCYTES 0.2 % (0-5); LYMPHOCYTES 8.2 % (15-50); MCH 31.4 pg (26.0-34.0); MCHC 34.7 g/dL (31.0-37.0); MCV 90.5 fL (80.0-100.0); MEAN PLATELET VOLUME 10.3 fL (7.4-10.4); NEUTROPHILS 87.4 % (40-80); PLATELET COUNT 203 10x3/uL (130-400); RBC 4.43 10x6/uL (4.20-6.10); RDW 13.5 % (11.5-14.5); WBC 9.5 10x3/uL (4.8-10.8)
[2017-07-30 07:06] LABS: ALBUMIN 3.1 g/dL (3.4-5.0); ALKALINE PHOSPHATASE 59 U/L (46-116); CALC OSMOLALITY 277 mosm/kg (275-300); CALCIUM 8.5 mg/dL (8.5-10.1); CARBON DIOXIDE 24.6 mmol/L (21.0-32.0); CHLORIDE - SERUM 106 mmol/L (98-107); CREATININE - SERUM 0.8 mg/dL (0.6-1.3); GLUCOSE 115 mg/dL (74-106); POTASSIUM - SERUM 4.5 mmol/L (3.5-5.1); PROTEIN - SERUM 6.1 g/dL (6.4-8.2); SODIUM 140 mmol/L (136-145); UREA NITROGEN 8 mg/dL (7-18); eGFR NON AFRICAN AMERICAN > 90 mL/min (90-120)
[2017-07-30 07:08] LABS: ALT (SGPT) 49 U/L (10-68)
[2017-07-31] VITALS: BP 114/77
[2017-07-31 05:49] LABS: CALC OSMOLALITY 281 mosm/kg (275-300); CALCIUM 8.3 mg/dL (8.5-10.1); CARBON DIOXIDE 24.5 mmol/L (21.0-32.0); CHLORIDE - SERUM 106 mmol/L (98-107); CREATININE - SERUM 0.9 mg/dL (0.6-1.3); GLUCOSE 120 mg/dL (74-106); POTASSIUM - SERUM 4.2 mmol/L (3.5-5.1); SODIUM 141 mmol/L (136-145); eGFR NON AFRICAN AMERICAN > 90 mL/min (90-120)
[2017-07-31 05:53] LABS: UREA NITROGEN 13 mg/dL (7-18)
[2017-07-31 06:13] LABS: BASOPHILS 0 % (0-2); EOSINOPHILS 0 % (0-7); HEMOGLOBIN 12.9 g/dL (13.5-17.5); IMMATURE GRANULOCYTES 0.3 % (0-5); LYMPHOCYTES 10.4 % (15-50); MCH 31.2 pg (26.0-34.0); MCHC 33.9 g/dL (31.0-37.0); MEAN PLATELET VOLUME 10.2 fL (7.4-10.4); MONOCYTES 4.1 % (2-11); NEUTROPHILS 85.2 % (40-80); PLATELET COUNT 168 10x3/uL (130-400); RBC 4.13 10x6/uL (4.20-6.10); RDW 13.7 % (11.5-14.5); WBC 7.8 10x3/uL (4.8-10.8)
[2017-07-31 07:56] VITALS: BP 120/69
[2017-07-31] MEDS ORDERED: APRISO0.375 GM PO (09:12)
[2017-07-31] MEDS ORDERED: CYMBALTA30 MG PO (09:13)
[2017-07-31 12:11] VITALS: BP 130/68
[2017-07-31 15:55] VITALS: BP 120/60
[2017-07-31 20:00] VITALS: BP 117/69
[2017-08-01] VITALS: BP 99/45
[2017-08-01 04:00] VITALS: BP 125/75
[2017-08-01 05:08] LABS: BASOPHILS 0 % (0-2); EOSINOPHILS 0 % (0-7); HEMATOCRIT 38.7 % (42.0-54.0); IMMATURE GRANULOCYTES 0.3 % (0-5); LYMPHOCYTES 14.7 % (15-50); MCH 31.1 pg (26.0-34.0); MCHC 33.6 g/dL (31.0-37.0); MCV 92.6 fL (80.0-100.0); MEAN PLATELET VOLUME 10.8 fL (7.4-10.4); MONOCYTES 6.3 % (2-11); NEUTROPHILS 78.7 % (40-80); PLATELET COUNT 166 10x3/uL (130-400); RBC 4.18 10x6/uL (4.20-6.10); RDW 13.8 % (11.5-14.5)
[2017-08-01 05:13] LABS: ALKALINE PHOSPHATASE 51 U/L (46-116); BILIRUBIN - TOTAL 0.16 mg/dL (0.2-1.3); CALCIUM 8.7 mg/dL (8.5-10.1); CARBON DIOXIDE 27.7 mmol/L (21.0-32.0); CHLORIDE - SERUM 105 mmol/L (98-107); CREATININE - SERUM 0.7 mg/dL (0.6-1.3); GLUCOSE 110 mg/dL (74-106); POTASSIUM - SERUM 3.9 mmol/L (3.5-5.1); PROTEIN - SERUM 6.2 g/dL (6.4-8.2); SODIUM 141 mmol/L (136-145); eGFR NON AFRICAN AMERICAN > 90 mL/min (90-120)
[2017-08-01 05:27] LABS: ALT (SGPT) 35 U/L (10-68); CALC OSMOLALITY 279 mosm/kg (275-300); UREA NITROGEN 8 mg/dL (7-18)
[2017-08-01 08:23] VITALS: BP 124/65
[2017-08-01 12:33] VITALS: BP 119/53
[2017-08-01 16:19] VITALS: BP 138/66
[2017-08-01 22:58] VITALS: BP 139/76
[2017-08-02 05:32] VITALS: BP 135/82
[2017-08-02 08:36] VITALS: BP 130/75
[2017-08-02 12:04] VITALS: BP 128/72
[2017-08-02 16:14] VITALS: BP 141/73
[2017-08-02 21:56] VITALS: BP 142/86
[2017-08-03 02:33] VITALS: BP 128/66
[2017-08-03 04:48] LABS: BASOPHILS 0 % (0-2); EOSINOPHILS 0 % (0-7); HEMOGLOBIN 14.4 g/dL (13.5-17.5); IMMATURE GRANULOCYTES 1.3 % (0-5); LYMPHOCYTES 10.9 % (15-50); MCH 31.6 pg (26.0-34.0); MCHC 34.3 g/dL (31.0-37.0); MCV 92.1 fL (80.0-100.0); MEAN PLATELET VOLUME 10.8 fL (7.4-10.4); MONOCYTES 4.9 % (2-11); NEUTROPHILS 82.9 % (40-80); PLATELET COUNT 183 10x3/uL (130-400); RBC 4.56 10x6/uL (4.20-6.10); RDW 13.6 % (11.5-14.5)
[2017-08-03 04:55] LABS: WBC 10.9 10x3/uL (4.8-10.8)
[2017-08-03 05:02] LABS: CALC OSMOLALITY 277 mosm/kg (275-300); CALCIUM 8.7 mg/dL (8.5-10.1); CARBON DIOXIDE 27.7 mmol/L (21.0-32.0); CHLORIDE - SERUM 101 mmol/L (98-107); CREATININE - SERUM 0.8 mg/dL (0.6-1.3); GLUCOSE 153 mg/dL (74-106); SODIUM 137 mmol/L (136-145); eGFR NON AFRICAN AMERICAN > 90 mL/min (90-120)
[2017-08-03 05:05] LABS: UREA NITROGEN 15 mg/dL (7-18)
[2017-08-03 09:41] VITALS: BP 126/73
[2017-08-03 13:12] VITALS: BP 112/54
[2017-08-03] MEDS ORDERED: PROTONIX40 MG PO (15:45)
[2017-08-03] MEDS ORDERED: MEDROL DOSE PACK4 MG PO (15:46)
== END 2017-08-03 17:52 | disposition home or self-care (01) | DRG 387 ==
LOC: D.ER 18:57 → D.EDHOLD 07-29 01:10 → D.MS 07-29 01:10
PROVIDERS: Family Medicine; Internal Medicine Gastroenterology; Nurse Practitioner Family
DX: K50.911 Crohn's disease, unspecified, with rectal bleeding (principal); K58.9 Irritable bowel syndrome, unspecified; F15.10 Other stimulant abuse, uncomplicated; K59.00 Constipation, unspecified

== ENCOUNTER 2017-10-01 20:51 | Emergency (ER) | payer MEDICAID ==
[~2017-10-01] VITALS: Ht 195.6 cm; Wt 122.7 kg
[~2017-10-01 20:51] MED LIST changes: +APRISO0.375 GM; +APRISO0.375 GM PO; +CYMBALTA20 MG; +CYMBALTA30 MG PO; +MEDROL DOSE PACK4 MG PO; +PROTONIX40 MG PO
[2017-10-01 21:11] VITALS: Ht 195.6 cm; Wt 122.7 kg
[2017-10-01] MEDS ORDERED: PEPCID20 MG PO (21:12)
[2017-10-01 21:26] LABS: APPEARANCE CLEAR (CLEAR); BILIRUBIN NEGATIVE (NEGATIVE); COLOR YELLOW (YELLOW); GLUCOSE NEGATIVE (NEGATIVE); KETONE NEGATIVE (NEGATIVE); NITRITE NEGATIVE (NEGATIVE); PH 5.5 (5.0-6.0); PROTEIN NEGATIVE (NEGATIVE); UROBILINOGEN NORMAL (NORMAL)
[2017-10-01 23:16] LABS: UDS - AMPHET NEGATIVE QUAL (NEGATIVE); UDS - BARB NEGATIVE QUAL (NEGATIVE); UDS - BENZO NEGATIVE QUAL (NEGATIVE); UDS - COCAINE NEGATIVE QUAL (NEGATIVE); UDS - OPIATE NEGATIVE QUAL (NEGATIVE); UDS - PCP NEGATIVE QUAL (NEGATIVE); UDS - THC NEGATIVE QUAL (NEGATIVE)
[2017-10-02] MEDS ORDERED: NORCO 7.5/325 T1 TA1 PO (00:46)
[2017-10-02 01:14] VITALS: BP 122/87
== END 2017-10-02 01:14 | disposition home or self-care (01) ==
LOC: D.ER 20:51
PROVIDERS: Family Medicine
DX: N48.81 Thrombosis of superficial vein of penis (principal); F17.200 Nicotine dependence, unspecified, uncomplicated